=== PATIENT | male | born 2000 | race Hispanic/Latino ===

== ENCOUNTER 2021-11-19 19:58 | Emergency (ER) | payer OTHER ==
[~2021-11-19] VITALS: Ht 167.6 cm; Wt 84.8 kg
[2021-11-19 20:32] LABS: BASOPHILS % (AUTO) 0.7 % (0.0-5.0); EOSINOPHILS % (AUTO) 3.1 % (0.0-8.0); HEMATOCRIT 44.2 % (42-54); LYMPHOCYTES % (AUTO) 32.9 % (21.0-51.0); MEAN CORPUSCULAR HEMOGLOBIN 30.1 pg (27.0-33.0); MEAN CORPUSCULAR HGB CONC 34.8 g/dL (32.0-36.0); MEAN CORPUSCULAR VOLUME 86.3 fL (79-99); MONOCYTES % (AUTO) 5.1 % (3.0-13.0); PLATELET COUNT (AUTO) 281 K/uL (130-400); RED BLOOD CELL COUNT(AUTO) 5.12 MIL/uL (4.50-6.20); RED CELL DISTRIBUTION WIDTH 12.2 % (11.0-15.5); WHITE BLOOD COUNT (AUTO) 5.8 K/uL (4.8-10.8)
[2021-11-19 20:41] LABS: POTASSIUM 3.4 mmol/L (3.5-5.1)
[2021-11-19 20:46] LABS: ALBUMIN 3.6 g/dL (3.5-5.0); TOTAL PROTEIN, SERUM 7.3 g/dL (6.0-8.3)
[2021-11-19] MEDS ORDERED: ONDANSETRON 4MG INJ IVP ONE (21:30)
[2021-11-19] MEDS ORDERED: KETOROLAC 30MG VIAL (30MG/ML) IVP ONE (21:30)
[2021-11-19] MEDS ORDERED: LEVOFLOXACIN 500 MG TABLET PO SCH (22:00)
[2021-11-19] MEDS ORDERED: METRONIDAZOLE 500 MG TABLET PO SCH (22:00)
[2021-11-19] MEDS ORDERED: LEVO-70 PO (22:02)
[2021-11-19] MEDS ORDERED: DICY20TA2 PO (22:02)
[2021-11-19] MEDS ORDERED: METR375C2 PO (22:02)
[2021-11-19 22:24] VITALS: BP 116/68
[2021-11-19 22:26] LABS: APPEARANCE,URINE CLEAR (CLEAR); BILIRUBIN,URINE NEGATIVE (NEGATIVE); COLOR,URINE YELLOW (YELLOW); GLUCOSE, URINE (UA) NEGATIVE (NEGATIVE); KETONES,URINE NEGATIVE (NEGATIVE); LEUKOCYTE ESTERASE ,URINE NEGATIVE (NEGATIVE); NITRATE,URINE NEGATIVE (NEGATIVE); PROTEIN,URINE NEGATIVE (NEGATIVE)
[2021-11-19 22:28] LABS: OCCULT BLOOD,URINE NEGATIVE (NEGATIVE)
== END 2021-11-19 22:37 | disposition home or self-care (01) ==
LOC: EDH 19:58
DX: K57.32 Diverticulitis of large intestine without perforation or abscess without bleeding (principal); Z79.899 Other long term (current) drug therapy
CPT/HCPCS: 99284; 74176; 96374; 96375; 80053; 83690; 85025; 86140; 81003; 36415; J2405; J1885